=== PATIENT | female | born 1975 | race Caucasian/White ===

== ENCOUNTER → 2017-10-04 | Day surgery (SDC) | payer BC ==
[~2017-10-04] MED LIST: Lactated Ringers 1,000 ML IV SCH; Meperidine PF 25 MG/ML Syringe IV ONE; Meperidine PF 25 MG/ML Syringe ONE; Meperidine PF 50 MG/ML Syringe IV ONE; Meperidine PF 50 MG/ML Syringe ONE; Midazolam 1 MG/ML 2 ML SDV IV ONE; Midazolam 1 MG/ML 2 ML SDV ONE
--- NOTE | 2017-10-04 11:25 | OR ---
DATE OF OPERATION: 10/04/2017 PREOPERATIVE DIAGNOSIS: PERSISTENT DIARRHEA. POSTOPERATIVE DIAGNOSIS: PERSISTENT DIARRHEA. SURGEON: Wilbert Rosas MD PROCEDURE: FULL-LENGTH COLONOSCOPY WITH RANDOM BIOPSIES X7. ANESTHESIA: Conscious sedation. COMPLICATIONS: None. SPECIMEN: Random colon biopsies from terminal ileum to rectal vault. FINDINGS: 1. Full-length colonoscopy. 2. No identifiable etiology of the patient's diarrhea. RECOMMENDATIONS: Medical followup pending path reports. INDICATIONS: The patient apparently has been having some persistent ongoing diarrhea that is worsening. CT scan of the abdomen and pelvis was negative, and we recommended a colonoscopy. DESCRIPTION OF PROCEDURE: The patient was prepped and draped, placed in the left lateral decubitus position. A lubricated Olympus colonoscope was inserted and with relative ease advanced to the cecum. The patient has a very difficult to traverse rectosigmoid area and distal sigmoid, but once into the proximal sigmoid, scope advanced easily, readily intubated into the terminal ileum, which was grossly benign, directly visualized the ileocecal valve and appendiceal orifice. Upon withdrawal, biopsy of the terminal ileum, cecum, hepatic and splenic flexure were obtained. There were no signs of any colitis, lesions, or ulcerations. Vascular abnormalities were otherwise throughout the entire length of the colon. Specifically, left-sided colon showed no signs of diverticula, colitis, polyp, mass, lesion, or otherwise. We also did random biopsies to the sigmoid, distal sigmoid, and rectum. Retroflexion scope in the rectal vault showed no anal lesions. Air was suctioned. Scope was removed without complication. ZABRINA/ROBERTO CARLOS /[id number]
== END ==
LOC: CC.SDS 06:39
PROVIDERS: ATTEND Family Medicine
DX: R19.7 Diarrhea, unspecified (principal); J01.90 Acute sinusitis, unspecified; E04.9 Nontoxic goiter, unspecified; E55.9 Vitamin D deficiency, unspecified; Z88.1 Allergy status to other antibiotic agents; Z79.899 Other long term (current) drug therapy
CPT/HCPCS: 45380; J2175; J2250; J7120